=== PATIENT | male | born 1995 | race Two or more races ===

== ENCOUNTER 2024-08-05 10:16 | Inpatient (IN) | payer MEDICAID, OTHER ==
[~2024-08-05] VITALS: Ht 175.3 cm; Wt 78.8 kg
--- NOTE | 2024-08-05 10:49 | ED.PDOC ---
GI ASSESSMENT HPI Comments 29y M who presents to the ED for chief complaint of abdominal pain. Pt states he has been having diffuse abdominal pain for the past 4 hours. Pt states he has been having epigastric abdominal pain radiating to the RUQ, rating the pain 10/10, constant, with associated exacerbating factor of pain after eating and no relieving factors. Pt states he has been having associated nausea, vomiting and diarrhea but otherwise denies diarrhea, fever, cough, chills, dysuria, hematuria, or hematemesis. Pt otherwise denies any other symptoms at this time. Chief Complaint: Abdominal Pain Time Seen by MD: 10:46 Reviewed Notes: Medications, Allergies Allergies: Coded Allergies: NO KNOWN ALLERGIES (Unverified , 08/05/24) Information Source: Patient Mode of Arrival: Ambulatory Past Medical History PAST MEDICAL HISTORY: Denies Surgical History: Denies all surgeries Family History Family History: Unknown Social History Smoker: Non-Smoker Alcohol: Denies ETOH Use Drugs: Denies Drug Use Lives In: Home Constitutional: denies: chills, diaphoresis, fatigue, fever, malaise, sweats, weakness, others EENTM: denies: blurred vision, double vision, ear bleeding, ear discharge, ear drainage, ear pain, ear ringing, eye pain, eye redness, hearing loss, mouth pain, mouth swelling, nasal discharge, nose bleeding, nose congestion, nose pain, photophobia, tearing, throat pain, throat swelling, voice changes, others Respiratory: denies: cough, hemoptysis, orthopnea, SOB at rest, shortness of breath, SOB with excertion, stridor, wheezing, others Cardiovascular: denies: chest pain, dizzy spells, diaphoresis, Dyspnea on exertion, edema, irregular heart beat, left arm pain, lightheadedness, palpitations, PND, syncope, others Gastrointestinal: reports: abdominal pain, diarrhea, nausea, vomiting; denies: abdomen distended, blood streaked bowels, constipated, dysphagia, difficulty swallowing, hematemesis, melena, poor appetite, poor fluid intake, rectal bleeding, rectal pain, others Genitourinary: denies: burning, dysuria, flank pain, frequency, hematuria, incontinence, penile discharge, penile sore, pain, testicle pain, testicle swelling, urgency, others Neurological: denies: dizziness, fainting, headache, left sided numbness, left sided weakness, numbness, paresthesia, pre-existing deficit, right sided numbness, right sided weakness, seizure, speech problems, tingling, tremors, weakness, others Musculoskeletal: denies: back pain, gout, joint pain, joint swelling, muscle pain, muscle stiffness, neck pain, others Integumetry: denies: bruises, change in color, change in hair/nails, dryness, laceration, lesions, lumps, rash, wounds, others Allergic/Immunocompromised: denies: Difficulty Healing, Frequent Infections, Hives, Itching, others Hematologic/Lymphatic: denies: anemia, blood clots, easy bleeding, easy bruising, swollen glands, others Endocrine: denies: excessive hunger, excessive sweating, excessive thirst, excessive urination, flushing, intolerance to cold, intolerance to heat, unexplained weight gain, unexplained weight loss, others Psychiatric: denies: anxiety, bipolar disorder, depression, hopeless, panic disorder, schizophrenia, sleepless, suicidal, others All Other Systems: Reviewed and Negative Physical Exam General Appearance: No Apparent Distress, Normal HEENT: Normal ENT Inspection, Pharynx Normal, TMs Normal Neck: Full Range of Motion, Non-Tender, Normal, Normal Inspection Respiratory: Chest Non-Tender, Lungs Clear, No Accessory Muscle Use, No Respiratory Distress, Normal Breath Sounds Cardiovascular: No Edema, No JVD, No Murmur, No Gallop, Normal Peripheral Pulses, Regular Rate/Rhythm Breast Exam: Deferred Gastrointestinal: Epigastric (epigastric pain radiating to the RUQ) Genitalia: Deferred Pelvic: Deferred Rectal: Deferred Extremities: No calf tenderness, Normal capillary refill, Normal inspection, Normal range of motion, Non-tender, No pedal edema Musculoskeletal : Apperance: Normal 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 Was a procedure done?: No GI differential Dx Differential Diagnosis: Appendicitis, Bowel Obstruction, Cholangitis, Cholecystitis, Constipation, Diverticular disease, Gastritis/PUD, Gastroenteritis, GI hemorrhage, Hernia, Hepatitis, Inflammatory BD, Ischemic Bowel, Pancreatitis, UTI, Urolithiasis, Dehydration, Diabetes/ DKA, Electrolyte Imbalance, Food Poisoning, Bacterial, Parasitic, Viral, Hypovolemia, Impaction, Mass, Stress Ulcer, Kidney Stone X-Ray, Labs, Meds, VS Vital Signs Date Time Temp Pulse Resp B/P (MAP) Pulse Ox O2 Delivery O2 Flow Rate FiO2 08/05/24 11:58 70 18 96 Room Air* 0 21 08/05/24 11:57 98.7 70 18 123/75 (91) 96 98.7 08/05/24 10:39 97.8 74 20 110/79 (89) 99 Lab Test 08/05/24 10:56 Range/Units White Blood Count 10.4 4.4-10.8 10^3/uL Red Blood Count 5.19 4.5-5.90 10^6/uL Hemoglobin 15.5 13.5-17.5 g/dL Hematocrit 45.0 41.0-53.0 % Mean Corpuscular Volume 86.7 80.0-100.0 fL Mean Corpuscular Hemoglobin 29.9 28.0-32.0 pg Mean Corpuscular Hemoglobin Concent 34.5 32.0-36.0 g/dL Red Cell Distribution Width 13.5 11.8-14.3 % Platelet Count 264 140-450 10^3/uL Mean Platelet Volume 8.5 6.9-10.8 fL Neutrophils (%) (Auto) 88.2 H 37.0-80.0 % Lymphocytes (%) (Auto) 8.5 L 10.0-50.0 % Monocytes (%) (Auto) 3.2 0.0-12.0 % Eosinophils (%) (Auto) 0.0 0.0-7.0 % Basophils (%) (Auto) 0.1 0.0-2.0 % Neutrophils # (Auto) 9.1 H 1.6-8.6 10 ^3/uL Lymphocytes # (Auto) 0.9 0.4-5.4 10 ^3/uL Monocytes # (Auto) 0.3 0-1.3 10 ^3/uL Eosinophils # (Auto) 0 0-0.8 10 ^3/uL Basophils # (Auto) 0 0-0.2 10 ^3/uL Nucleated Red Blood Cells 0.0 % Sodium Level 139 136-145 mmol/L Potassium Level 4.2 3.5-5.1 mmol/L Chloride Level 105 98-107 mmol/L Carbon Dioxide Level 27 20-31 mmol/L Anion Gap 7 5-15 Blood Urea Nitrogen 7 L 9-23 mg/dL Creatinine 0.87 0.700-1.30 mg/dL Glomerular Filtration Rate Calc 119 >90 mL/min BUN/Creatinine Ratio 8.0 L 10.0-20.0 Serum Glucose 128 H 74-106 mg/dL Calcium Level 10.3 8.7-10.4 mg/dL Total Bilirubin 0.3 0.2-1.0 mg/dL Aspartate Amino Transferase (AST) 16 13-40 U/L Alanine Aminotransferase (ALT) 26 7-40 U/L Alkaline Phosphatase 87 46-116 U/L Total Protein 8.3 H 5.7-8.2 g/dL Albumin 5.2 H 3.2-4.8 g/dL Lipase 33 12-53 U/L [place] [id number] Ph: [phone] DIAGNOSTIC IMAGING Diagnostic Imaging Report : [id number] Signed PATIENT: ANKITA HERRERACCT: [id number] UNIT: [id number] : 1995 LOC: ER ROOM / BED: / AGE / SEX: 29 / M ADM STATUS: REG ER SERVICE 1032 ORDERING PHYSICIAN: BELKIS TYLER MD PROCEDURE(s): GBUS - GALLBLADDER REASON: epigastric pain ORDER NUMBER(s): [id number], ACCESSION NUMBER(s): [id number] Procedure: US GALLBLADDER 08/05/2024 10:33 AM Indication: epigastric pain Comparison: None Technique: Grayscale and color images of the right upper quadrant were obtained. FINDINGS: ASCITES: None. LIVER: Liver measures 14.6 cm in craniocaudal. Liver parenchyma is diffusely echogenic. No focal lesion is identified. No intrahepatic ductal dilatation. Normal directional flow is seen in the portal vein. GALLBLADDER: A 1.4 cm non mobile stone seen in gallbladder neck. Trace sludge noted. Mild gallbladder wall thickening noted. Sonographic Maxwell's sign is negative. COMMON BILE DUCT: 0.5 cm in caliber. PANCREAS: Visualized portions are unremarkable. RIGHT KIDNEY: Normal in size, 9 cm in length without hydronephrosis. No focal lesions identified. AORTA, IVC: Visualized portions are unremarkable. OTHER: None. IMPRESSION: 1. A 1.4 cm gallstone is seen stocking gallbladder neck with mild gallbladder wall thickening and positive sonographic maxwell's sign concerning for acute cholecystitis. Recommend clinical and biochemical correlation and surgical consultation. Confirmation with HIDA scan could be done if clinically indicated. 2. Hepatic steatosis. ATED BY: PASTORA SIM MD DICTATED DATE/TIME: 08/05/24 110 SIGNED BY: PASTORA SIM MD SIGNED DATE/TIME: 08/05/241106 CC: Time of 1ST Reevaluation: 11:15 Reevaluation 1ST: Unchanged Time of 2ND Reevaluation: 12:05 Reevaluation 2ND: Improved Patient Education/Counseling: Diagnosis, Treatment, Prognosis, Need For Follow Up Family Education/Counseling: Diagnosis, Treatment, Prognosis, Need For Follow Up Additional Information - I reviewed the following notes from patient's past medical encounters: - The following tests were ordered, and results were reviewed by me: (Labs): gallbladder US, lipase, CBC, CMP - Additional information was gathered from interviewing the following independent Historian: (Family, Other Providers) - I reviewed and agreed with the following test results read by other provider: ( US): none - I discussed treatments and results with medical personnel and: (consultants, family): 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 he will receive iv antibiotics and ivf and be admitted for further care Departure 1 Departure Time of Disposition: 12:09 Impression: Primary Impression: Cholecystitis Disposition: ADMITTED INPATIENT Condition: Stable Discharged With: Self, Relative (Father) Critical Care Note Critical Care Time?: Yes (55 min-critical care time only) Critical care comment: due to concerns for patient's condition deteriorating, the care required my highest level of attention and readiness to intervene. i reviewed any external notes, communicatd with medical personnel, assessed the pt, ordered the proper tests and treatments, and reassessed for response, formulated a plan of care. the critical care time excludes any procedures Stability Stability form required: No Heart Score Heart Score: Heart Score Response (Comments) Value History N/A 0 EKG N/A 0 Age N/A 0 Risk Factors N/A 0 Troponin N/A 0 Total 0 I personally scribed for BELKIS TYLER MD ([facility]) on 08/05/24 at 10:49. Electronically submitted by Hui Langston ([facility] [place]). I personally scribed for BELKIS TYLER MD ([facility]) on 08/05/24 at 11:19. Electronically submitted by Hui Langston ([facility] [place]). BELKIS TYLER MD Aug 05, 2024 10:49
--- NOTE | 2024-08-05 11:10 | DVH ---
Procedure: US GALLBLADDER 08/05/2024 10:33 AM Indication: epigastric pain Comparison: None Technique: Grayscale and color images of the right upper quadrant were obtained. FINDINGS: ASCITES: None. LIVER: Liver measures 14.6 cm in craniocaudal. Liver parenchyma is diffusely echogenic. No focal les ion is identified. No intrahepatic ductal dilatation. Normal directional flow is seen in the portal vein. GALLBLADDER: A 1.4 cm non mobile stone seen in gallbladder neck. Trace sludge noted. Mild gallbladder wall thickening noted. Sonographic Maxwell's sign is negative. COMMON BILE DUCT: 0.5 cm in caliber. PANCREAS: Visualized portions are unremarkable. RIGHT KIDNEY: Normal in size, 9 cm in length without hydronephrosis. No focal lesions identified. AORTA, IVC: Visualized portions are unremarkable. OTHER: None. IMPRESSION: 1. A 1.4 cm gallstone is seen stocking gallbladder neck with mild gallbladder wall thickening and pos itive sonographic maxwell's sign concerning for acute cholecystitis. Recommend clinical and biochemic al correlation and surgical consultation. Confirmation with HIDA scan could be done if clinically in dicated. 2. Hepatic steatosis.
[2024-08-05 11:13] LABS: Basophils # (auto) 0 10 ^3/uL (0-0.2); Basophils % (auto) 0.1 % (0.0-2.0); Eosinophils # (auto) 0 10 ^3/uL (0-0.8); Hemoglobin 15.5 g/dL (13.5-17.5); Lymphocytes # (auto) 0.9 10 ^3/uL (0.4-5.4); Lymphocytes % (auto) 8.5 % (10.0-50.0); Mean Corpuscular Hemoglobin 29.9 pg (28.0-32.0); Mean Corpuscular Hgb Conc. 34.5 g/dL (32.0-36.0); Mean Corpuscular Volume 86.7 fL (80.0-100.0); Monocytes # (auto) 0.3 10 ^3/uL (0-1.3); Monocytes % (auto) 3.2 % (0.0-12.0); Neutrophils # (auto) 9.1 10 ^3/uL (1.6-8.6); Neutrophils % (auto) 88.2 % (37.0-80.0); Platelet Count (auto) 264 10^3/uL (140-450); Red Blood Cells 5.19 10^6/uL (4.5-5.90); Red Cell Distribution Width 13.5 % (11.8-14.3); White Blood Cell 10.4 10^3/uL (4.4-10.8)
[2024-08-05 11:23] LABS: Alanine Aminotransferase 26 U/L (7-40); Alkaline Phosphatase 87 U/L (46-116); Anion Gap 7 (5-15); Aspartate Aminotransferase 16 U/L (13-40); Calcium 10.3 mg/dL (8.7-10.4); Carbon Dioxide 27 mmol/L (20-31); Chloride 105 mmol/L (98-107); Lipase 33 U/L (12-53); Potassium 4.2 mmol/L (3.5-5.1); Sodium 139 mmol/L (136-145)
[2024-08-05 11:28] LABS: Albumin 5.2 g/dL (3.2-4.8); Bilirubin, Total 0.3 mg/dL (0.2-1.0); Blood Urea Nitrogen 7 mg/dL (9-23); Glucose 128 mg/dL (74-106); Total Protein 8.3 g/dL (5.7-8.2)
[2024-08-05] MEDS: cefTRIAXone 1GM/50ML D5W 50 ML IV ONE (11:45)
[2024-08-05] MEDS: SODIUM CHLORIDE 0.9% 1,000 ML IV ONE (11:45)
[2024-08-05 11:58] VITALS: PULSE 70; RESP 18; O2SAT 96
[2024-08-05] MEDS: metroNIDAZOLE 500MG/100ML 100 ML IV ONE (12:26)
--- NOTE | 2024-08-05 13:36 | DVHHP2 ---
History of Present Illness Reason for Visit: Abdominal pain History of Present Illness 29-year-old male no past medical history no surgical history chief complaint patient comes in with abdominal pain epigastric pain patient stated it started this morning. In his radiates to the right upper quadrant. Patient states the pain is constant. There was no vomiting no diarrhea no chest pain no shortness with the breath no fever feels patient states when he eats the pain is even worse. He states he had gallstones. When evaluating patient's labs and imaging ceftriaxone was provided Flagyl normal saline CBC was unremarkable glucose was 128 albumin was 5.2 otherwise cMP was unremarkable lipase was negative and liver enzymes were normal along with T bili. With these findings we will admit patient for further workup and ask for General surgery consult Past Medical History Denies any medical history Past Surgical History Denies any surgical history Family History Reviewed, non-contributory to the management of this case. Past Social History Patient did drink last drink was yesterday denies drug or smoking Review of Systems Constitutional: No: Fever, Chills, Sweats, Weakness, Malaise, Other Eyes: No: Pain, Vision change, Conjunctivae inflammation, Eyelid inflammation, Other, Redness ENT: No: Ear pain, Ear discharge, Nose pain, Nose discharge, Nose congestion, Mouth pain, Mouth swelling, Throat pain, Throat swelling, Other Respiratory: No: Cough, Dry, Shortness of breath, SOB with excertion, Wheezing, Hemoptysis, Pleuritic Pain, Sputum, Wheezing, Other Cardiovascular: No: Chest Pain, Palpitations, Orthopnea, Paroxysmal Noc. Dysp neto, Edema, Lt Headedness, Other Gastrointestinal: Nausea, Vomiting, Abdominal Pain; No: Diarrhea, Constipation, Melena, Hematochezia, Other Genitourinary: No Dysuria, No Frequency, No Incontinence, No Hematuria, No Retention, No Other Musculoskeletal: No: other, neck pain, shoulder pain, arm pain, back pain, hand pain, leg pain, foot pain Skin: No: Rash, Lesions, Jaundice, Bruising, Other Neurological: No: Weakness, Numbness, Incoordination, Change in speech, Confusion, Seizures, Other Allergies: Coded Allergies: NO KNOWN ALLERGIES (Unverified , 08/05/24) Exam Vital Signs Vital Signs Date Time Temp Pulse Resp B/P (MAP) Pulse Ox O2 Delivery O2 Flow Rate FiO2 08/05/24 11:58 70 18 96 Room Air* 0 21 08/05/24 11:57 98.7 123/75 (91) 98.7 General Appearance: Alert, Oriented X3, Cooperative, No acute distress HEENT: Atraumatic, PERRLA, EOMI, Mucous membr. moist/pink Respiratory: Clear to auscultation, Normal air movement Cardiovascular: Regular rate, Normal S1, Normal S2, No murmurs Abdominal: Normal bowel sounds, Soft, No hepatospenomegaly, No masses, Other (Positive guarding and rebound tenderness) Extremities: No clubbing, No cyanosis, No edema, Normal pulses, No tenderness/swelling Skin: No rashes, No breakdown, No significant lesion Neuro: Normal speech, Strength at 5/5 X4 ext, Normal tone, Sensation intact, Cranial nerves 3-12 NL Psych/Mental Status: Mental status NL, Mood NL Labs/Xrays Ultrasound of the abdomen shows hepatic steatosis gallbladder neck stone thickening of the gallbladder was consistent with acute cholecystitis I reviewed labs, imaging CT scan abdomen pelvis, EKG and all diagnostic studies on this patient from ED records and the medical chart Labs Test 08/05/24 10:56 Range/Units White Blood Count 10.4 4.4-10.8 10^3/uL Red Blood Count 5.19 4.5-5.90 10^6/uL Hemoglobin 15.5 13.5-17.5 g/dL Hematocrit 45.0 41.0-53.0 % Mean Corpuscular Volume 86.7 80.0-100.0 fL Mean Corpuscular Hemoglobin 29.9 28.0-32.0 pg Mean Corpuscular Hemoglobin Concent 34.5 32.0-36.0 g/dL Red Cell Distribution Width 13.5 11.8-14.3 % Platelet Count 264 140-450 10^3/uL Mean Platelet Volume 8.5 6.9-10.8 fL Neutrophils (%) (Auto) 88.2 H 37.0-80.0 % Lymphocytes (%) (Auto) 8.5 L 10.0-50.0 % Monocytes (%) (Auto) 3.2 0.0-12.0 % Eosinophils (%) (Auto) 0.0 0.0-7.0 % Basophils (%) (Auto) 0.1 0.0-2.0 % Neutrophils # (Auto) 9.1 H 1.6-8.6 10 ^3/uL Lymphocytes # (Auto) 0.9 0.4-5.4 10 ^3/uL Monocytes # (Auto) 0.3 0-1.3 10 ^3/uL Eosinophils # (Auto) 0 0-0.8 10 ^3/uL Basophils # (Auto) 0 0-0.2 10 ^3/uL Nucleated Red Blood Cells 0.0 % Sodium Level 139 136-145 mmol/L Potassium Level 4.2 3.5-5.1 mmol/L Chloride Level 105 98-107 mmol/L Carbon Dioxide Level 27 20-31 mmol/L Anion Gap 7 5-15 Blood Urea Nitrogen 7 L 9-23 mg/dL Creatinine 0.87 0.700-1.30 mg/dL Glomerular Filtration Rate Calc 119 >90 mL/min BUN/Creatinine Ratio 8.0 L 10.0-20.0 Serum Glucose 128 H 74-106 mg/dL Calcium Level 10.3 8.7-10.4 mg/dL Total Bilirubin 0.3 0.2-1.0 mg/dL Aspartate Amino Transferase (AST) 16 13-40 U/L Alanine Aminotransferase (ALT) 26 7-40 U/L Alkaline Phosphatase 87 46-116 U/L Total Protein 8.3 H 5.7-8.2 g/dL Albumin 5.2 H 3.2-4.8 g/dL Lipase 33 12-53 U/L Assessment/Plan Assessment/Plan Acute cholecystitis with gallstones and cbd duct found on gallbladder us N.p.o. for now ordered Ceftriaxone and Flagyl ordered IV fluids ordered General surgery consult follow-up recs ordered Protonix epigastric pain ordered Type and screen, inr ordered Morphine and Zofran ordered mrcp fu results ordered etoh level fu results Lipase normal Acute hepatic steatosis Outpatient follow up with GI fen/ppx protonix scd ivf no dvt ppx since pt is ambulatory plan admit to medicine for general surgery evaluation Plan discussed with: Patient Date of Service: Aug 05, 2024 Billing Provider: DOMINGO TUTTLE DNP Common Visit Codes: 28962-[id number] INP/OBS CARE (HIGH) DOMINGO TUTTLE DNP Aug 05, 2024 13:36
[2024-08-05] MEDS ORDERED: ONDANSETRON HCL 4 MG/2 ML VIAL IV PRN (14:00)
[2024-08-05] MEDS ORDERED: DOCUSATE SOD 100 MG CAP PO PRN (14:00)
[2024-08-05] MEDS ORDERED: MORPHINE SULFATE INJ 2 MG/ml SYRG IV PRN (14:00)
[2024-08-05 14:03] VITALS: PULSE 85; RESP 17; O2SAT 98
[2024-08-05] MEDS: SODIUM CHLORIDE 0.9% 1,000 ML IV SCH (14:28)
[2024-08-05] MEDS: PIPERACILLIN-TAZOB 3.375GM 100 ML IV ONE (14:39)
[2024-08-05] MEDS ORDERED: NITROGLYCERIN 0.4 MG SL TAB SL PRN (15:15)
[2024-08-05 15:30] LABS: INR 1.07 (0.9-1.15); Partial Thromboplastin Time 26.9 SEC (24.5-34.5); Prothrombin Time 11.3 sec (9.3-11.8)
[2024-08-05] MEDS: IOHEXOL 300 MG/ML 100ML BOTTLE IJ ONE (16:40)
[2024-08-05 17:15] VITALS: BP 132/64; PULSE 74; RESP 17; TEMP 97.9; O2SAT 95
[2024-08-05] MEDS ORDERED: [UNRECOGNIZED DRUG - CODE] SC (17:19)
[2024-08-05 20:00] VITALS: PULSE 85; RESP 18; O2SAT 95
[2024-08-05 21:00] VITALS: BP 124/67; PULSE 85; RESP 19; TEMP 98.5; O2SAT 95
[2024-08-05] MEDS: PIPERACILLIN-TAZOB 3.375GM 100 ML IV SCH (21:41)
[2024-08-06] VITALS (9 sets, daily range): BP systolic 104–113; BP diastolic 51–64; PULSE 62–103; RESP 16–19; TEMP 97.9–98.6; O2SAT 95–100
[2024-08-06 06:20] LABS: Basophils # (auto) 0 10 ^3/uL (0-0.2); Basophils % (auto) 0.2 % (0.0-2.0); Eosinophils # (auto) 0.1 10 ^3/uL (0-0.8); Eosinophils % (auto) 1.2 % (0.0-7.0); Hematocrit 43.2 % (41.0-53.0); Hemoglobin 14.7 g/dL (13.5-17.5); Lymphocytes # (auto) 2.1 10 ^3/uL (0.4-5.4); Lymphocytes % (auto) 23.7 % (10.0-50.0); Mean Corpuscular Hemoglobin 29.4 pg (28.0-32.0); Mean Corpuscular Hgb Conc. 34.1 g/dL (32.0-36.0); Mean Corpuscular Volume 86.3 fL (80.0-100.0); Monocytes # (auto) 0.9 10 ^3/uL (0-1.3); Monocytes % (auto) 9.9 % (0.0-12.0); Neutrophils # (auto) 5.7 10 ^3/uL (1.6-8.6); Platelet Count (auto) 244 10^3/uL (140-450); Red Blood Cells 5.01 10^6/uL (4.5-5.90); Red Cell Distribution Width 13.3 % (11.8-14.3); White Blood Cell 8.8 10^3/uL (4.4-10.8)
[2024-08-06 06:32] LABS: Alanine Aminotransferase 21 U/L (7-40); Albumin 4.2 g/dL (3.2-4.8); Alkaline Phosphatase 70 U/L (46-116); Anion Gap 8 (5-15); Aspartate Aminotransferase 17 U/L (13-40); BUN/Creatinine Ratio 7.4 (10.0-20.0); Bilirubin, Total 0.7 mg/dL (0.2-1.0); Calcium 9.8 mg/dL (8.7-10.4); Carbon Dioxide 26 mmol/L (20-31); Chloride 106 mmol/L (98-107); Sodium 140 mmol/L (136-145)
[2024-08-06 06:33] LABS: Total Protein 6.9 g/dL (5.7-8.2)
[2024-08-06 06:38] LABS: Blood Urea Nitrogen 7 mg/dL (9-23); Glucose 126 mg/dL (74-106); Potassium 3.4 mmol/L (3.5-5.1)
--- NOTE | 2024-08-06 08:02 | DVH ---
CLINICAL INFORMATION: 29 years old, Male; procedure. Preoperative examination. No other clinical inf ormation provided. TECHNIQUE: Single AP portable chest radiograph was obtained. COMPARISON: None FINDINGS: Lungs: Clear. Cardiac: Heart size is within normal limits. Pulmonary vasculature: Unremarkable. Mediastinum/noa: Unremarkable. Bones: No acute osseous abnormality identified. Other: No other significant findings. IMPRESSION: No evidence of acute disease in the chest.
--- NOTE | 2024-08-06 09:17 | DVH ---
MRI Abdomen, MRCP without IV Contrast Exam Date: 08/06/2024 08:40 AM Comparison: None History: eval for biliary duct stone abd pain gallstone Technique: Multisequence multiplanar MRI images were obtained of the abomen. MRCP including 3D SPACE, Radial 2D slabs and SPACE 3D MIP images Findings: Liver: The liver is normal in size without focal lesions. Normal liver contour. Spleen: Unremarkable. Pancreas: The pancreas is normal in appearance without focal lesions. Gallbladder and ducts: Cholelithiasis. Moderate pericholecystic edema. The cystic duct, right and left hepatic ducts, common hepatic duct, and common bile ducts are unremarkable. The pancreatic erwin t is within normal limits. Adrenal glands: Unremarkable. Kidneys: Normal enhancement without suspicious lesions or hydronephrosis. Visualized bowel: Grossly unremarkable. Vasculature: Unremarkable. Lymphadenopathy: No evidence for lymphadenopathy. Ascites: Absent. Musculoskeletal: Bone marrow signal is normal. IMPRESSION: Cholelithiasis and moderate pericholecystic edema. No biliary duct dilation.
--- NOTE | 2024-08-06 09:26 | DVHINCON2 ---
Date of service: Aug 06, 2024 Reason for Consultation CHOLECYSTITIS History of Present Illness History Source: Patient, RN Notes, Notes HPI 29 year old male presented to the Er with complaint of epigastric pain with radiation to his right upper quadrant. Patient states it started in the morning a couple days ago. Home Meds Reported Medications Ixekizumab (Taltz) 80 Mg/Ml Inj, SC 08/05/24 Chief Complaint of Abdominal/F: Abdominal pain, Vomiting, Nausea Onset/Duration of Abd/Flank Pa: 24 hours Quality of Abd/Flank Pain: Sharpness Location of Abdominal Onset: Epigastric Past Medical History Cardiac: No pertinent Hx Pulmonary: No pertinent Hx Central Nervous System: No pertinent Hx GI: No pertinent Hx Hemotology/Oncology: No pertinent Hx Hepatobiliary: No pertinent Hx Psychiatric: No pertinent Hx Musculoskeletal: No pertinent Hx Rheumotologic: No pertinent Hx Infectious Disease: No peritnent Hx ENT: No pertinent Hx Renal/: No pertinent Hx Endocrine: No pertinent Hx Dermatology: No pertinent Hx Past Surgical History: No pertinent Hx Family History: No pertinent Hx Patient Family History: Diabetes mellitus G8 FATHER Smoker: No Hx (Negative) Alocohol: Occassional Drugs: None Review of Systems Constitutional: No symptom reported Ears, Nose, & Throat: No symptom reported Eyes: No symptom reported Pulmonary/Respiratory: No symptom reported Cardiovascular: No symptom reported Gastrointestinal: Abdominal Pain Genitourinary: No symptom reported Musculoskeletal: No symptom reported Skin: No symptom reported Psychiatric: No symptom reported Endocrine: No symptom reported Hemotologic/Lymphatic: No symptom reported H&P Exam Vital Signs Vital Signs Date Time Temp Pulse Resp B/P (MAP) Pulse Ox O2 Delivery O2 Flow Rate FiO2 08/06/24 08:16 72 16 95 Room Air* 0 21 08/06/24 05:00 98.0 104/54 (71) 98.0 General Appeara: Well developed, Well nourished, Normal Appearance Head Exam: Normal inspection Eye Exam: bilateral eye Normal inspection, bilateral eye PERRL Nasal Exam: Normal inspection Mouth: Normal Inspection Pulmonary/Respiratory: Normal inspection, Normal breath sounds Cardiovascular/Chest: Normal inspection Abdominal Exam: Normal bowel sounds Abdominal Pain Onset Location: Epigastric Tendon/ Neuro: 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 Exam: Normal hearing, Normal speech, PERRL Neuro/Mental St: Alert, Oriented Appearance: Appropriate appearance, Appropriate insight Eye contact/ Speech: Cooperative, Good eye contact, Normal speech Skin Exam: Normal inspection, Normal color, Warm/dry Labs/Xrays Labs Test 08/06/24 05:13 08/05/24 14:40 08/05/24 10:56 Range/Units White Blood Count 8.8 4.4-10.8 10^3/uL Red Blood Count 5.01 4.5-5.90 10^6/uL Hemoglobin 14.7 13.5-17.5 g/dL Hematocrit 43.2 41.0-53.0 % Mean Corpuscular Volume 86.3 80.0-100.0 fL Mean Corpuscular Hemoglobin 29.4 28.0-32.0 pg Mean Corpuscular Hemoglobin Concent 34.1 32.0-36.0 g/dL Red Cell Distribution Width 13.3 11.8-14.3 % Platelet Count 244 140-450 10^3/uL Mean Platelet Volume 9.2 6.9-10.8 fL Neutrophils (%) (Auto) 65.0 37.0-80.0 % Lymphocytes (%) (Auto) 23.7 10.0-50.0 % Monocytes (%) (Auto) 9.9 0.0-12.0 % Eosinophils (%) (Auto) 1.2 0.0-7.0 % Basophils (%) (Auto) 0.2 0.0-2.0 % Neutrophils # (Auto) 5.7 1.6-8.6 10 ^3/uL Lymphocytes # (Auto) 2.1 0.4-5.4 10 ^3/uL Monocytes # (Auto) 0.9 0-1.3 10 ^3/uL Eosinophils # (Auto) 0.1 0-0.8 10 ^3/uL Basophils # (Auto) 0 0-0.2 10 ^3/uL Nucleated Red Blood Cells 0.0 % Sodium Level 140 136-145 mmol/L Potassium Level 3.4 L 3.5-5.1 mmol/L Chloride Level 106 98-107 mmol/L Carbon Dioxide Level 26 20-31 mmol/L Anion Gap 8 5-15 Blood Urea Nitrogen 7 L 9-23 mg/dL Creatinine 0.94 0.700-1.30 mg/dL Glomerular Filtration Rate Calc 112 >90 mL/min BUN/Creatinine Ratio 7.4 L 10.0-20.0 Serum Glucose 126 H 74-106 mg/dL Calcium Level 9.8 8.7-10.4 mg/dL Total Bilirubin 0.7 0.2-1.0 mg/dL Aspartate Amino Transferase (AST) 17 13-40 U/L Alanine Aminotransferase (ALT) 21 7-40 U/L Alkaline Phosphatase 70 46-116 U/L Total Protein 6.9 5.7-8.2 g/dL Albumin 4.2 3.2-4.8 g/dL Prothrombin Time 11.3 9.3-11.8 sec Prothrombin Time INR 1.07 0.9-1.15 Activated Partial Thromboplast Time 26.9 24.5-34.5 SEC Plasma/Serum Blood Alcohol < 3.0 <10 mg/dL Lipase 33 12-53 U/L Assessment/Plan Plan patient complaint of epigastric pain with radiation to right upper quadrant. positive Maxwell sign, denies any nausea or vomiting art this time. Patient states the pain started a couple days ago and is worse with meals. review of image reports, labs and exam will proceed with Laparoscopic possibly open cholecystectomy, all risks and complication explained to patient in great detail Plan discussed with: Patient, Other (Dr. Foote ) Visit Coding Surgery Date of Service if different f: Aug 06, 2024 Billing Provider: ERIC FOOTE MD Surgery Visit Codes: 25539 - INP CONSULT <80 MIN TANNER BERG NP Aug 06, 2024 09:26
--- NOTE | 2024-08-06 11:30 | DVHPN2 ---
Progress Note Date Seen: Aug 06, 2024 Medical Necessity Reason Pt with a Central, PICC or Fol: No Subjective Patient reports: No new complaints Review of Systems: HEENT:Normal, CVS:Normal, RESPIRATORY:Normal, GI:Normal, :Normal, MSK:Normal, NEURO:Normal Objective vital signs Vital Sign Date Time Temp Pulse Resp B/P (MAP) Pulse Ox O2 Delivery O2 Flow Rate FiO2 08/06/24 09:27 98.0 72 16 106/51 (69) 95 98.0 08/06/24 08:16 Room Air* 0 21 Total Intake and Output 08/05/24 08/05/24 08/06/24 15:00 23:00 07:00 Intake Total 495 ml 100 ml 0 ml Balance 495 ml 100 ml 0 ml medications Current Medications Medications Dose Ordered Sig/Chel Route Start Time Stop Time Status Last Admin Dose Admin Sodium Chloride 1,000 ml @ 120 mls/hr Q8H20M IV 08/05/24 14:00 08/06/24 06:23 120 MLS/HR Ondansetron HCl 4 mg Q4HP PRN IV 08/05/24 14:00 Docusate Sodium 100 mg BIDPRN PRN PO 08/05/24 14:00 Morphine Sulfate 2 mg Q4HPRN PRN IV 08/05/24 14:00 Piperacillin Sod/ Tazobactam Sod 100 ml @ 25 mls/hr Q6H IV 08/05/24 22:00 08/06/24 09:02 25 MLS/HR Nitroglycerin 0.4 mg Q5MINP PRN SL 08/05/24 15:15 Examination: GENERAL:Normal, HEENT:Normal, NECK:Normal, LUNGS:Normal, CVS:Normal, ABDOMEN:Normal, MSK:Normal, SKIN:Normal, NEURO:Normal, :Normal laboratory and microbiology Laboratory Tests 08/06/24 05:13 Test 08/06/24 05:13 Range/Units Serum Glucose 126 H 74-106 mg/dL Problem List/Assessment/Plan Problem List/Assessment/Plan #1 gallstones with acute kenny: surg today, ivf, iv zosyn #2 RA #3 tobacco abuse: advised to quit, time spent 11 mins Plan discussed with: Patient Date of Service: Aug 06, 2024 Billing Provider: GEN ROBLES MD Common Visit Codes: [id number] INP/OBS CARE(HIGH) Secondary Visit Codes: 67221-[id number] CHNG SMOKING >10MIN GEN ROBLES MD Aug 06, 2024 11:30
[2024-08-06] MEDS ORDERED: MEPERIDINE HCL (25 MG/ML) 1ML VIAL ONE (11:56)
[2024-08-06] MEDS ORDERED: GLYCOPYRROLATE 0.2 MG/ML 1ML VIAL ONE (11:56)
[2024-08-06] MEDS ORDERED: MIDAZOLAM HCL 2MG/2ML 2ml VIAL (1mg/ml) ONE (11:56)
[2024-08-06] MEDS ORDERED: NEOSTIGMINE 1 MG/ML INJ (10mg/10ML VIAL) ONE (11:56)
[2024-08-06] MEDS ORDERED: ONDANSETRON HCL 4 MG/2 ML VIAL ONE (11:56)
[2024-08-06] MEDS ORDERED: PROPOFOL 10 MG/ML 20 ML IV ONE (11:56)
[2024-08-06] MEDS ORDERED: ROCURONIUM 10MG/ML 10ML VIAL IV ONE (11:56)
[2024-08-06] MEDS ORDERED: LIDOCAINE 1% INJ PF 5ML AMP ONE (11:56)
[2024-08-06] MEDS ORDERED: fentaNYL CITRATE 100 MCG/2 ML VL ONE (13:25)
[2024-08-06] MEDS ORDERED: SUGAMMADEX 200mg/2ml Vial (100MG/ML) IV ONE (13:43)
[2024-08-06] MEDS ORDERED: HYDROmorphone HCL 2 MG/ML VL/or syr IV PRN ×3 (14:00→14:15)
[2024-08-06] MEDS ORDERED: ONDANSETRON HCL 4 MG/2 ML VIAL IV PRN (14:00)
[2024-08-06] MEDS ORDERED: METOCLOPRAMIDE HCL 5MG/ml INJ 2ml VIAL IV ONE (14:15)
[2024-08-06] MEDS ORDERED: fentaNYL CITRATE 100 MCG/2 ML VL IV PRN (14:15)
[2024-08-06] MEDS ORDERED: KETOROLAC TROMETH 30 MG/ML 1ML VIAL IV ONE (14:15)
[2024-08-06] MEDS ORDERED: MORPHINE SULFATE INJ 2 MG/ml SYRG IV PRN (14:15)
[2024-08-06] MEDS: D5W/SOD CHL 0.45%/KCL 20MEQ 1,000 ML IV SCH (15:05)
--- NOTE | 2024-08-06 15:59 | DVHOP ---
DATE OF SURGERY: 08/06/2024 PREOPERATIVE DIAGNOSES: Cholelithiasis, cholecystitis. POSTOPERATIVE DIAGNOSES: Cholelithiasis, cholecystitis. SURGEON: Rene Foote MD ANESTHESIA: General endotracheal, Dr. Miller. [employer] OFFBEARER: CHIO Machado PROCEDURES: * Laparoscopy. * Laparoscopic cholecystectomy. DESCRIPTION OF PROCEDURE: Under general endotracheal anesthesia with the patient's skin prepped and draped, the patient's supraumbilical incision was made and Veress needle inserted into the peritoneal cavity so as to establish pneumoperitoneum to 15 mmHg pressure by insufflation with carbon dioxide. With the abdomen fully distended, the needle was removed and replaced with a 5 mm trocar port through which a 0-degree viewing laparoscope was inserted and under direct vision, 5 and 10 mm ports inserted through the right anterior axillary line and the subxiphoid midline skin respectively. Instrumentation was introduced and laparoscopy was performed that revealed no obvious unexpected pathology. The gallbladder was placed on tension. The cystic duct and cystic artery were identified, circumferentially dissected, skeletonized, and traced into the hepatocystic triangle so as to minimize the potential for inadvertent injury to the common bile duct. The cystic duct and cystic artery was divided between metallic clips and then subsequently the gallbladder was resected from its liver bed by electrocautery and traction and the fully mobilized gallbladder was removed from the peritoneal cavity by placement in a specimen extraction bag which was withdrawn from the 10 mm port site in the subxiphoid incision. Subsequently, the right upper quadrant was thoroughly irrigated and irrigant was aspirated. Hemostasis was meticulously accomplished and assisted by placement of small amount of hemostatic SNoW into the gallbladder fossa which was slightly denuded due to the intrahepatic nature of the gallbladder fundus. Subsequently, the instrumentation withdrawn. Pneumoperitoneum was evacuated. At the time of closure, there was no evidence of bleeding from either the gallbladder or the port sites. Following evacuation of the pneumoperitoneum, the patient's fascia was closed using 0 Vicryl and the patient's skin incision approximated using Monocryl sutures, Dermabond glue, and Steri-Strips. The patient remained stable throughout the procedure and left the operating room following an accurate needle and sponge count. His father Dima was thoroughly informed in the waiting room. MD YULY Pacheco/THOMAS TID: [id number] RECEIPT: [id number]
[2024-08-06] MEDS: HYDROcodone-ACET 5/325MG TAB PO PRN (16:56)
[2024-08-06] MEDS: ACETAMINOPHEN 325 MG TAB PO PRN (21:44)
[2024-08-07] VITALS (7 sets, daily range): BP systolic 102–111; BP diastolic 53–69; PULSE 61–71; RESP 16–21; TEMP 36.6; O2SAT 96–100
[2024-08-07] MEDS: PANTOPRAZOLE 40 MG/10 ML VIAL INJ IV SCH (05:31)
[2024-08-07 07:01] LABS: Basophils # (auto) 0 10 ^3/uL (0-0.2); Basophils % (auto) 0.2 % (0.0-2.0); Eosinophils # (auto) 0.1 10 ^3/uL (0-0.8); Eosinophils % (auto) 1.3 % (0.0-7.0); Hematocrit 39.4 % (41.0-53.0); Hemoglobin 13.3 g/dL (13.5-17.5); Lymphocytes # (auto) 1.8 10 ^3/uL (0.4-5.4); Lymphocytes % (auto) 25.2 % (10.0-50.0); Mean Corpuscular Hemoglobin 29.4 pg (28.0-32.0); Mean Corpuscular Hgb Conc. 33.7 g/dL (32.0-36.0); Mean Corpuscular Volume 87.2 fL (80.0-100.0); Monocytes # (auto) 0.6 10 ^3/uL (0-1.3); Monocytes % (auto) 8.9 % (0.0-12.0); Neutrophils # (auto) 4.5 10 ^3/uL (1.6-8.6); Neutrophils % (auto) 64.4 % (37.0-80.0); Platelet Count (auto) 208 10^3/uL (140-450); Red Blood Cells 4.52 10^6/uL (4.5-5.90); Red Cell Distribution Width 13.3 % (11.8-14.3)
[2024-08-07 07:17] LABS: Alanine Aminotransferase 29 U/L (7-40); Albumin 3.7 g/dL (3.2-4.8); Alkaline Phosphatase 59 U/L (46-116); Anion Gap 6 (5-15); Aspartate Aminotransferase 27 U/L (13-40); Bilirubin, Total 0.7 mg/dL (0.2-1.0); Calcium 9.3 mg/dL (8.7-10.4); Carbon Dioxide 28 mmol/L (20-31); Chloride 107 mmol/L (98-107); Sodium 141 mmol/L (136-145); Total Protein 6.2 g/dL (5.7-8.2)
[2024-08-07 07:19] LABS: BUN/Creatinine Ratio 5.8 (10.0-20.0); Blood Urea Nitrogen < 5 mg/dL (9-23); Glucose 110 mg/dL (74-106); Potassium 3.3 mmol/L (3.5-5.1)
--- NOTE | 2024-08-07 12:06 | DVHDS2 ---
Discharge Summary Date of Admission Aug 05, 2024 at 15:04 Date of Discharge: Aug 07, 2024 Labs/Diagnostic Data: Laboratory Results Test 08/07/24 05:40 08/05/24 14:40 08/05/24 10:56 White Blood Count 7.0 10^3/uL (4.4-10.8) Red Blood Count 4.52 10^6/uL (4.5-5.90) Hemoglobin 13.3 g/dL (13.5-17.5) Hematocrit 39.4 % (41.0-53.0) Mean Corpuscular Volume 87.2 fL (80.0-100.0) Mean Corpuscular Hemoglobin 29.4 pg (28.0-32.0) Mean Corpuscular Hemoglobin Concent 33.7 g/dL (32.0-36.0) Red Cell Distribution Width 13.3 % (11.8-14.3) Platelet Count 208 10^3/uL (140-450) Mean Platelet Volume 9.1 fL (6.9-10.8) Neutrophils (%) (Auto) 64.4 % (37.0-80.0) Lymphocytes (%) (Auto) 25.2 % (10.0-50.0) Monocytes (%) (Auto) 8.9 % (0.0-12.0) Eosinophils (%) (Auto) 1.3 % (0.0-7.0) Basophils (%) (Auto) 0.2 % (0.0-2.0) Neutrophils # (Auto) 4.5 10 ^3/uL (1.6-8.6) Lymphocytes # (Auto) 1.8 10 ^3/uL (0.4-5.4) Monocytes # (Auto) 0.6 10 ^3/uL (0-1.3) Eosinophils # (Auto) 0.1 10 ^3/uL (0-0.8) Basophils # (Auto) 0 10 ^3/uL (0-0.2) Nucleated Red Blood Cells 0.0 % Sodium Level 141 mmol/L (136-145) Potassium Level 3.3 mmol/L (3.5-5.1) Chloride Level 107 mmol/L (98-107) Carbon Dioxide Level 28 mmol/L (20-31) Anion Gap 6 (5-15) Blood Urea Nitrogen < 5 mg/dL (9-23) Creatinine 0.86 mg/dL (0.700-1.30) Glomerular Filtration Rate Calc 119 mL/min (>90) BUN/Creatinine Ratio 5.8 (10.0-20.0) Serum Glucose 110 mg/dL (74-106) Calcium Level 9.3 mg/dL (8.7-10.4) Total Bilirubin 0.7 mg/dL (0.2-1.0) Aspartate Amino Transferase (AST) 27 U/L (13-40) Alanine Aminotransferase (ALT) 29 U/L (7-40) Alkaline Phosphatase 59 U/L (46-116) Total Protein 6.2 g/dL (5.7-8.2) Albumin 3.7 g/dL (3.2-4.8) Prothrombin Time 11.3 sec (9.3-11.8) Prothrombin Time INR 1.07 (0.9-1.15) Activated Partial Thromboplast Time 26.9 SEC (24.5-34.5) Plasma/Serum Blood Alcohol < 3.0 mg/dL (<10) Lipase 33 U/L (12-53) Other Laboratory Tests 08/07/24 05:40 Brief Hx & Hospital Course: see dictated note Condition at Discharge: Fair Final Diagnosis/Problems List manuel cox Discharge Disposition: Home Discharge Instruct/Medications Diet: Regular Activity: No Restrictions, As Tolerated Follow Up/Referral: schedule appt with dr Foote in 1 wk Medications: resume home meds script to pharmacy Discharge Statement: "Patient was advised to return to the ER or call 911 if any headaches, dizziness, shortness of breath, chest pain, abdominal pain, bleeding, fevers, or worsening of medical condition. Patient was counseled about treatment plan, medications, possible side effects, patientverbalized understanding. All questions were answered to the best of my ability. This discharge took greater then 30 minutes in planning, reviewing documentation, counseling the patient, and discussing with other team members." ASSESSMENT ASSESSMENT Assessment manuel cox Date of Service: Aug 07, 2024 Billing Provider: GEN ROBLES MD Common Visit Codes: 77958-JNR/OBS DISCH DAY >30min GEN ROBLES MD Aug 07, 2024 12:06
[2024-08-07] MEDS ORDERED: LEVO500T91 PO (12:11)
[2024-08-07] MEDS ORDERED: TRAM-626 PO (12:11)
[2024-08-07] MEDS ORDERED: DOCU-94 PO (12:11)
[2024-08-07] MEDS ORDERED: MET500T PO (12:11)
--- NOTE | 2024-08-07 12:51 | DVHPN2 ---
Progress Note Date Seen: Aug 07, 2024 Medical Necessity Reason Pt with a Central, PICC or Fol: No Objective vital signs Vital Sign Date Time Temp Pulse Resp B/P (MAP) Pulse Ox O2 Delivery O2 Flow Rate FiO2 08/07/24 08:32 97.6 64 21 105/53 (70) 99 97.6 08/07/24 08:20 Room Air* 0 21 Total Intake and Output 08/06/24 08/06/24 08/07/24 15:00 23:00 07:00 Intake Total 100 ml 1400 ml 800 ml Balance 100 ml 1400 ml 800 ml medications Current Medications Medications Dose Ordered Sig/Chel Route Start Time Stop Time Status Last Admin Dose Admin Ondansetron HCl 4 mg Q4HP PRN IV 08/05/24 14:00 Hold Docusate Sodium 100 mg BIDPRN PRN PO 08/05/24 14:00 Morphine Sulfate 2 mg Q4HPRN PRN IV 08/05/24 14:00 Hold Piperacillin Sod/ Tazobactam Sod 100 ml @ 25 mls/hr Q6H IV 08/05/24 22:00 08/07/24 10:57 25 MLS/HR Nitroglycerin 0.4 mg Q5MINP PRN SL 08/05/24 15:15 Acetaminophen 650 mg Q6HP PRN PO 08/06/24 11:30 08/06/24 21:44 650 MG Acetaminophen/ Hydrocodone Bitart 1 tab Q6HPRN PRN PO 08/06/24 11:30 08/06/24 16:56 1 TAB Potassium Chloride/Dextrose/ Sod Cl 1,000 ml @ 120 mls/hr Q8H20M IV 08/06/24 14:00 08/06/24 22:22 120 MLS/HR Hydromorphone HCl 1 mg Q3HPRN PRN IV 08/06/24 14:00 Ondansetron HCl 4 mg Q4HPRN PRN IV 08/06/24 14:00 Pantoprazole Sodium 40 mg DAILY@0630 IV 08/07/24 06:30 08/07/24 05:31 40 MG laboratory and microbiology Laboratory Tests 08/07/24 05:40 Test 08/07/24 05:40 Range/Units Serum Glucose 110 H 74-106 mg/dL Problem List/Assessment/Plan Problem List/Assessment/Plan 08/07/24 doing well, abdomen appropriately tender, non distended, advance diet, OK to discharge, diet as tolerated, OK to shower after 72 hours, return to see me in two weeks Plan discussed with: Patient ERIC HENRANDEZ MD Aug 07, 2024 12:51
--- NOTE | 2024-08-07 12:51 | DVHDS ---
DATE OF DISCHARGE: 08/07/2024 HISTORY OF PRESENT ILLNESS: The patient is a 29-year-old gentleman who was admitted with complaints of abdominal pain and has previous history of rheumatoid arthritis. HOSPITAL COURSE: The patient had a gallbladder ultrasound that showed evidence of gallstone with positive Maxwell sign concerning for acute cholecystitis. The patient had an MRCP that showed cholelithiasis with moderate pericholecystic edema. The patient was seen in surgery consult by Dr. Foote. The patient underwent laparoscopic cholecystectomy on 08/06/2024. The patient is not tolerating oral diet. He will be discharged home to be on Levaquin 500 mg daily for seven days, Flagyl 500 mg t.i.d. for seven days, Colace p.r.n. for constipation and tramadol p.r.n. for pain. He will follow up with surgery in one week. FINAL DIAGNOSES: Therefore, * Cholelithiasis with acute cholecystitis. * Rheumatoid arthritis. * Tobacco abuse. Time spent in discharge planning and review of plan with the patient and family at bedside was 38 minutes. MD MANUEL Juarez/ROD TID: [id number] RECEIPT: [id number]
[2024-08-07] MEDS: POTASSIUM CHL 20 Meq TABLET PO ONE (13:47)
== END 2024-08-07 17:15 | disposition home or self-care (01) | DRG 263 ==
LOC: ER 10:16 → OVERFLOW 15:04 → WEST WING 15:13
PROVIDERS: ADMIT Nurse Practitioner Family; ATTEND Internal Medicine
PROC: 0FT44ZZ Resection of Gallbladder, Percutaneous Endoscopic Approach (ICD-10-PCS; principal; 2024-08-06 13:10)
DX: K80.12 Calculus of gallbladder with acute and chronic cholecystitis without obstruction (principal); K76.0 Fatty (change of) liver, not elsewhere classified; K59.00 Constipation, unspecified; M06.9 Rheumatoid arthritis, unspecified; Z83.3 Family history of diabetes mellitus; Z79.899 Other long term (current) drug therapy
CPT/HCPCS: 36415; 71045; 74181; 76705; 80053; 80320; 83690; 85025; 85610; 85730; 86850; 86900; 86901; 96365; 96367; 99291; G0378; J2250; J2405; J2470; J2543; J2704; J3490